=== PATIENT | male | born 1940 | race Caucasian/White ===

== ENCOUNTER 2017-09-19 06:08 | Inpatient (IN) ==
[~2017-09-19 06:08] MED LIST: Bacitracin 50,000 UNIT, Polymyxin B Sulfate 500,000 UNIT, Sodium Chloride IRRigation 1,... IR ONE
[2017-09-19] MEDS ORDERED: CeFAZolin Syr 2,000MG/20 ML 2,000 MG/20 ML SYRINGE IVPB ONE (06:26)
[2017-09-19] MEDS ORDERED: Ringers Solution, Lactated 1,000 ML IVC SCH ×2 (06:30→17:34)
[2017-09-19] MEDS ORDERED: *HR* Succinylcholine 200 MG/10 ML VIAL IVP ONE (06:40)
[2017-09-19] MEDS ORDERED: Lidocaine -MPF 2% 2 ML VIAL ONE (06:40)
[2017-09-19] MEDS ORDERED: *HR* FentaNYL (PF) 100 MCG/2 ML VIAL ONE ×3 (06:40→15:57)
[2017-09-19] MEDS ORDERED: Ondansetron 4 MG/2 ML VIAL ONE (06:40)
[2017-09-19] MEDS ORDERED: Lidocaine -MPF 4% 5 ML AMPUL ONE (06:40)
[2017-09-19] MEDS ORDERED: Dexamethasone 4 MG/ML VIAL ONE (06:40)
[2017-09-19] MEDS ORDERED: *HR* Propofol 200 MG/20 ML VIAL IVP ONE ×2 (06:41→10:47)
[2017-09-19] MEDS ORDERED: Acetaminophen IV 1,000 MG/100 ML INFUS..BTL IVPB ONE (07:09)
--- NOTE | 2017-09-19 07:11 | Anesthesia Evaluation PreOp ---
Date of Encounter: 09/19/17 Time of Encounter: 07:08 - Past History Planned Operation: Posterior cervical fusion Cardiac History: HTN Pulmonary History: Snore, Tired most of day IMPORT EXPORT MANAGER History: Other (cervical stenosis, radiculopathy) Other Medical History: GERD Anesthesia History: No Prior Anesthetic Complications, Past Anesthesia (L TKR, R elbo nn, hernia repair, appendectomy, prostate seeds) Alcohol Use: none Drug use: none Medications and Allergies Aspirin [Adult Aspirin Regimen] 81 mg PO DAILY 09/19/17 [History] Esomeprazole Magnesium [Nexium] 40 mg PO DAILY 09/19/17 [History] Ibuprofen [Motrin] 600 mg PO TID PRN 09/19/17 [History] 3 Allergy/AdvReac Type Severity Reaction Status Date / Time Sulfa (Sulfonamide Allergy Hives Verified 09/19/17 06:54 Antibiotics) ciprofloxacin AdvReac See Verified 09/19/17 06:54 Comments metronidazole AdvReac See Verified 09/19/17 06:54 Comments Wxljhfa-Kjj-Oxn Reductase AdvReac See Verified 09/19/17 06:54 Inhibitor Comments [Statins] - Meds/Allergy Pre-op Review Medications Reviewed: Yes Allergies Reviewed: Yes Beta Blockers on Current Med List: No Anesthesia Results - Labs Laboratory Tests 08/16/16 10/26/16 09/17/17 14:00 11:17 10:30 WBC 6.3 Hgb 17.2 H Hct 49.1 Plt Count 202 PT INR APTT Sodium Potassium Chloride Carbon Dioxide BUN POC Creatinine 1.40 H Creatinine Glucose 103 H 09/17/17 09/17/17 10:30 10:30 WBC Hgb Hct Plt Count PT 10.8 INR 1.0 APTT 32.7 Sodium 137 Potassium 4.1 Chloride 106 Carbon Dioxide 24 BUN 17 POC Creatinine Creatinine 1.16 Glucose - Imaging EKG: pending Anesthesia Exam O2 Sat Height 1.78 m Height 1.78 m Height 1.78 m Weight 107.048 kg Weight 107.048 kg Weight 107.048 kg O2 Sat by Pulse Oximetry 93 Vital Signs Temp Pulse Resp BP Pulse Ox 98.0 F 65 18 166/89 93 09/19/17 06:33 09/19/17 06:33 09/19/17 06:33 09/19/17 06:33 09/19/17 06:33 Height: 70" Weight: 231lbs NPO (# of Hours): >8 - HEENT Pupil (Motor): Pupils equal, EOMI Mallampati: III (limited ROM neck due to pain) Teeth: Prosthesis Denture Type: Upper: Partial Oral Opening: Greater than 3 - IMPORT EXPORT MANAGER LOC: Oriented IMPORT EXPORT MANAGER Motor: Normal LUE, Normal RLE, Normal LLE, Normal Face, Deficit RUE ( weakness) IMPORT EXPORT MANAGER Sensory: Normal: RLE, Face, Deficit: RUE (numbness), LUE (numbness), LLE ( numbness) - Cardiac Rhythm: Regular - Pulmonary Breath Sounds: bilateral Clear Respiratory Effort: Symmetrical Anesthesia Assess/Plan ASA Score: 2 Modified Karen Scale for Level of Consciousness: Cooperative, oriented, and tranquil Anesthetic Plan: General Monitoring Plan: Standard Monitors Recovery Plan: PACU
--- NOTE | 2017-09-19 08:10 | History & Physical Report ---
Date of Encounter: 09/19/17 Time of Encounter: 08:08 24 Hour HP Update - Instructions Instructions: If the History and Physical is less than 30 days old and was completed prior to A.M. admission and or procedure and has NOT been updated on calendar day of procedure please complete this update prior to performing procedure. - Update Patient reports changes in Medical Condition: No Changes in examination, assessment, or condition: No Changes in Medication: No Preop tests/diagnostics Reviewed: Yes Pre-Op MRSA Screen: Negative Surgery Remains Indicated: Yes Consent for Planned Operative Procedure(s) Verified: Yes - Pre-Operative Checklist Preoperative Checklist Indicated: No Prophylactic Antibiotic Ordered: Yes Home Medications Include Beta Lopez: No Beta Lopez Taken Today (Day of Surgery): No Beta Lopez Taken Yesterday (Day Prior to Surgery): No Is VTE Prophylaxis Indicated?: Yes
[2017-09-19] MEDS ORDERED: Esmolol 100 MG/10 ML VIAL IVP ONE ×2 (11:00→15:04)
[2017-09-19] MEDS ORDERED: EPHEDrine 50 MG/ML VIAL ONE (11:01)
[2017-09-19] MEDS ORDERED: Propofol 500 MG/50 ML INFUS..BTL ONE ×5 (11:49→14:37)
[2017-09-19] MEDS ORDERED: *HR* Remifentanil 2 MG VIAL IVP ONE ×2 (12:43→14:37)
[2017-09-19] MEDS ORDERED: *HR* Phenylephrine 10 MG/ML VIAL ONE (14:37)
--- NOTE | 2017-09-19 14:39 | Orthopedic Operative Note ---
Date of procedure: 09/19/17 Pre-op diagnosis: Cervical stenosis, cervical myelopathy Post-op diagnosis: same Operation/Findings: Posterior cervical fusion C4-C7: Patient was brought to the operative theater where he successfully underwent general endotracheal intubation. He was given antibiotics prior to the start of the procedure. Compression boots and stockings were used for deep vein thrombosis prophylaxis. A Garay catheter was placed. Leads were placed on the upper extremities and lower extremities as well as the cranium. The neurologic monitoring personnel confirmed satisfactory readings prior to the start of the procedure. The patient was turned prone on the operative table after being properly secured in a Osborne head rest. The area from the mid occipital to the mid thoracic spine was prepped and draped in the usual sterile fashion posteriorly. An incision was made and centered over the C4-C7 cervical spinous processes in the midline. The scoring incision was deepened through the cervical fascia. We used Bovie cautery and Antonio elevators to carefully dissect the lateral masses and expose them from C4-C7. Radiographic confirmation was confirmed by the radiologist via a discussion. We then placed lateral mass screws at C4, C5, C6, and C7 bilaterally using standard techniques. 8 separate 3.5 x 12 mm lateral mass screws were placed uneventfully and confirmed via fluorographic views as having satisfactory placement. After placement of the lateral mass screws, we turned our attention to the decompression. We removed the ligamentum flavum and interspinous and supraspinous ligaments at C6-7. We proceeded proximally with the decompression. This includes a laminectomy of C6, C5, and C4.. All intervening ligamentum flavum and ligamentous material was removed. Bone obtained from the laminectomies was saved in a separate sterile container for later use. After the decompression, the spinal cord could be clearly visualized from C4-C7 and was fully decompressed. It was seen to expand nicely. We copiously irrigated the wound. We then decorticated the facet joints and lateral masses from C4-5, C5-6, and C6-7 bilaterally until bleeding bone was obtained. We then used the autograft bone obtained from the laminectomy/decompression from C4-C7 and placed it over the lateral masses and facet joints in these regions. We then placed rods within the screw heads from C4-C7 bilaterally. We subsequently placed screw caps over the Rods and locked and finally tightened the construct in standard fashion. We then closed the wound in layers with 1 Vicryl for the Fascia, 2-0 Vicryl for the more superficial fascia and 2-0 Vicryl was used for skin closure. Dermabond was paced over the wound. Sterile dressing was placed over the wound as well. Cervical collar was placed. Patient was turned supine and extubated on the Hospital Bed. The patient was in good condition at the end of the procedure. All sponge counts, needle counts, and Instruments were correct at the end of the procedure. Anesthesia: GETA Surgeon: Kashif Barraza Jr Was there an assistant professor of history present: No Estimated blood loss (cc): 75 Specimen: None Condition: stable Disposition: PACU
[2017-09-19] MEDS ORDERED: *HR* HYDROmorphone 2 MG TABLET PO PRN (14:46)
[2017-09-19] MEDS ORDERED: *HR* OxyCODONE Immed Rel 5 MG TABLET PO PRN (14:46)
[2017-09-19] MEDS ORDERED: MORPHINE SUL Oral CONC 10 MG/0.5 ML ORAL.SYG SL PRN (14:46)
[2017-09-19] MEDS ORDERED: Ondansetron 4 MG/2 ML VIAL IVP PRN ×2 (14:46→17:34)
[2017-09-19] MEDS: *HR* Labetalol 20 MG/4 ML SYRINGE IVP PRN ×3 (15:05→15:33)
[2017-09-19] MEDS ORDERED: *HR* FentaNYL (PF) 100 MCG/2 ML VIAL IVP PRN (15:59)
--- NOTE | 2017-09-19 17:30 | Anesthesia Evaluation Post Op ---
Date of Encounter: 09/19/17 Time of Encounter: 17:27 - Vital Signs Vital Signs: Vital Signs/O2 Sat, Most Current Temp Pulse Resp BP Pulse Ox 98.3 F 91 18 169/96 93 09/19/17 16:56 09/19/17 17:06 09/19/17 17:06 09/19/17 17:06 09/19/17 17:06 - Lungs Lungs: Clear Ascult./Percussion - Airway Airway: Non-obstructed - Cardiovascular Regular Rate - Mental Status Mental Status: Alert & Oriented, Answers Appropriately - Pain Pain Scale used: Numeric (1 - 10) (tolerable) - Nausea Vomiting Nausea Vomiting: Not Present - Hydration Hydration: NPO, Garay catheter - Discharge PostOp Status: Transfer Patient to floor
[2017-09-19] MEDS ORDERED: Naloxone 0.4 MG/ML INJ IVP PRN (17:34)
[2017-09-19] MEDS ORDERED: Acetaminophen 325 MG TABLET PO PRN (17:34)
[2017-09-19] MEDS: Ketorolac 30 MG/ML VIAL IVP PRN (18:29)
[2017-09-19] MEDS: ceFAZolin 2,000 MG in 0.9 % Sodium Chloride 100 ML IVPB SCH (18:31)
[2017-09-19] MEDS: *HR* OxyCODONE Immed Rel 5 MG TABLET PO PRN (21:35)
[2017-09-20] MEDS: *HR* OxyCODONE Immed Rel 5 MG TABLET PO PRN ×5 (02:43→22:21)
[2017-09-20] MEDS: ceFAZolin 2,000 MG in 0.9 % Sodium Chloride 100 ML IVPB SCH (02:45)
[2017-09-20] MEDS: Ketorolac 30 MG/ML VIAL IVP PRN ×3 (04:56→23:49)
[2017-09-20] MEDS: Aspirin Enteric Coated 81 MG Tablet PO SCH (09:48)
--- NOTE | 2017-09-20 12:41 | Spine Progress Note ---
Date of Encounter: 09/20/17 Time of Encounter: 12:40 Subjective Principal diagnosis: Cervical stenosis, cervical radiculopathy, history of cervical fusion Interval history: The patient complains of severe neck pain. Afebrile vital signs are stable. Dressing is clean dry and intact. Neurovascularly intact with regard to bilateral upper extremities. Fires all upper and lower extremity motor groups. Assessment :stable. Plan mobilize ,continue analgesics, discharge planning. Objective Vital signs: Vital Signs Temp Pulse Resp BP Pulse Ox 09/20/17 11:26 97.4 F L 67 16 94 09/20/17 07:00 97.9 F 81 16 168/87 96 09/20/17 04:07 97.9 F 78 16 154/88 92 09/20/17 00:39 98.5 F 87 16 158/85 94 09/19/17 21:00 94 09/19/17 20:50 97.6 F 84 18 154/86 94 09/19/17 19:54 85 16 146/84 93 09/19/17 18:45 160/76 09/19/17 17:38 170/96 93 09/19/17 17:35 93 09/19/17 17:30 97.3 F L 95 22 190/103 92 09/19/17 17:06 91 18 169/96 93 09/19/17 16:56 98.3 F 89 20 174/95 92 09/19/17 16:46 98.3 F 89 24 185/101 92 09/19/17 16:36 87 22 191/105 92 09/19/17 16:26 84 24 192/101 92 09/19/17 16:16 98.1 F 82 21 191/108 92 09/19/17 16:06 82 20 194/108 93 09/19/17 15:56 82 20 189/112 93 09/19/17 15:46 97.7 F 85 20 183/111 93 09/19/17 15:36 86 20 178/111 93 09/19/17 15:26 88 20 163/113 94 09/19/17 15:16 98.0 F 87 20 183/114 93 09/19/17 15:06 93 20 183/114 94 09/19/17 14:56 94 20 192/104 94 09/19/17 14:46 97.9 F 93 20 182/95 93 Intake and Output 04/11/18 04/12/18 04/12/18 23:59 07:59 15:59 Intake Total 100 / 100 Output Total 3300 / 3300 Balance -3200 / -3200 Intake: IV Fluids 100 / 100 Ancef 2,000 MG In 0.9 % Sodium 100 / 100 Chloride 100 ML @ 200 mls/hr IVPB Q8H [facility] Rx#:[id number] Output: Catheter 3300 / 3300 Urethral (Garay) 2049 Consult Discharge Plan - Plan Referrals: Quintin Vargas DO [Primary Care Provider] -
--- NOTE | 2017-09-20 13:20 | Event Note ---
Date of Encounter: 09/20/17 Time of Encounter: 08:45 Patient is POD#2 Posterior cervical fusion C4-C7 on 09/19/[address] Barraza for Cervical stenosis, cervical myelopathy. The patient is without complaints. States pain is improving through the night. Afebrile vital signs are stable. Laboratory and xrays reviewed and without concern. Incision is clean dry and intact. Neurovascularly intact with regard to bilateral lower extremities. Fires all upper and lower extremity motor groups. Assessment :stable postoperative Plan: mobilize with therapy, continue analgesics as needed, discharge planning - awaiting therapy recommendations
[2017-09-21] MEDS: *HR* OxyCODONE Immed Rel 5 MG TABLET PO PRN ×3 (06:26→21:36)
--- NOTE | 2017-09-21 07:20 | Electrocardiograph Report ---
[facility] [employer] Test Date: 2017-09-19 Pat Name: [place] Department: 101 Room: [facility] Gender: M Application Dba: LENA : 1940 Requested By: Lorena Camejo Order Number: [id number] Reading MD: Luis Cuenca Measurements Intervals Lindsey Rate: 60 P: 16 OR: 171 QRS: -26 QRSD: 104 T: -9 QT: 409 QTc: 410 Interpretive Statements SINUS RHYTHM BORDERLINE LEFT AXIS DEVIATION MINIMAL ST DEPRESSION Electronically Signed On 09-21-2017 7:18:34 EDT by Luis Cuenca
[2017-09-21] MEDS: Aspirin Enteric Coated 81 MG Tablet PO SCH (08:19)
[2017-09-21] MEDS: *HR* HYDROcodone/Acet 5/325 mg TABLET PO PRN ×2 (08:19→14:44)
--- NOTE | 2017-09-21 08:24 | Orthopedics Progress Note ---
Date of Encounter: 09/21/17 Time of Encounter: 08:22 - Assessment and Plan (1) Cervical spinal stenosis Current Visit: Yes Status: Chronic (2) Cervical radiculopathy Current Visit: Yes Status: Chronic (3) Hx of fusion of cervical spine Current Visit: Yes Status: Chronic (4) Status post cervical spinal fusion Current Visit: Yes Status: Acute Subjective Principal diagnosis: Cervical stenosis, cervical radiculopathy, history of cervical fusion Interval history: Patient is POD#3 Posterior cervical fusion C4-C7 on 09/19/[address] Barraza for Cervical stenosis, cervical myelopathy. The patient is without complaints. States pain is improving though he notes his arms aching when his neck starts to hurt. Afebrile vital signs are stable. Laboratory and xrays reviewed and without concern. Incision is clean dry and intact. Neurovascularly intact with regard to bilateral lower extremities. Fires all upper and lower extremity motor groups. Assessment :stable postoperative Plan: mobilize with therapy, continue analgesics as needed, discharge planning - to [facility] tomorrow, 09/21. Objective Vital signs: Vital Signs Temp Pulse Resp BP Pulse Ox 09/21/17 07:42 98.6 F 98 17 170/98 93 09/20/17 23:23 98.5 F 82 18 136/79 92 09/20/17 20:55 98.0 F 98 16 140/80 93 09/20/17 17:00 98.0 F 74 16 159/82 95 09/20/17 11:26 97.4 F L 67 16 94 09/20/17 09:30 93 Intake and Output 09/20/17 09/21/17 09/21/17 23:59 07:59 15:59 Intake Total 100 / 100 Output Total 600 / 600 Balance -500 / -500 Intake: Oral 100 / 100 Output: Urine 600 / 600 Other: Meal Dinner Percent of Meal Consumed 70% - VTE Documentation of Mechanical Device: Graduated compression elastic hosiery Consult Discharge Plan - Plan Referrals: Quintin Vargas DO [Primary Care Provider] - Mei Lockhart PAC [Physician Acid Conditioning Worker] - 10/02/17 1:00 pm
--- NOTE | 2017-09-21 08:27 | Discharge Summary ---
Date of Encounter: 09/21/17 Time of Encounter: 08:25 - Discharge Diagnosis (1) Cervical spinal stenosis Priority: Primary Status: Chronic (2) Cervical radiculopathy Priority: Primary Status: Chronic (3) Hx of fusion of cervical spine Priority: Primary Status: Chronic (4) Status post cervical spinal fusion Priority: Primary Status: Acute - Hospital Course Hospital course: Mr. Beach is a 77 year old male - Time Spent with Patient Total time spent providing and/or coordinating discharge services: - Discharge Medications Prescriptions: OxyCODONE Immed Rel [Roxicodone 5 MG] 5 mg PO Q6H PRN 7 Days #28 tablet PRN Reason: Severe Pain Home Medications: Aspirin [Adult Aspirin Regimen] 81 mg PO DAILY 09/19/17 [History] Esomeprazole Magnesium [Nexium] 40 mg PO DAILY 09/19/17 [History] Ibuprofen [Motrin] 600 mg PO TID PRN 09/19/17 [History] Acetaminophen [Tylenol] 650 mg PO Q6HR PRN tablet 09/21/17 [Rx] Cyclobenzaprine [Flexeril] 10 mg PO TID PRN tablet 09/21/17 [Rx] OxyCODONE Immed Rel [Roxicodone 5 MG] 5 mg PO Q6H PRN 7 Days #28 tablet [Rx] Allergies/Adverse Reactions: 3 Allergy/AdvReac Type Severity Reaction Status Date / Time Sulfa (Sulfonamide Allergy Hives Verified 09/19/17 06:54 Antibiotics) ciprofloxacin AdvReac See Verified 09/19/17 06:54 Comments metronidazole AdvReac See Verified 09/19/17 06:54 Comments Mbtkhww-Xct-Bvm Reductase AdvReac See Verified 09/19/17 06:54 Inhibitor Comments [Statins] Date of admission: 09/19/17 17:23 Primary care physician: Quintin Vargas DO Consults: 09/19/17 17:34 Consult to Occupational Therapy [CONS] Routine Comment: Evaluate, develop and implement POC Reason for Consult: Postoperative rehabilitation Does patient have active BEDREST order?: No Is patient medically & hemodynamically stable?: Yes Patient assessed for mobility or mobilized this visit?: No Consult to Physical Therapy [CONS] Routine Comment: Evaluate, develop and implement POC Reason for Consult: Postoperative rehabilitation Does patient have active BEDREST order?: No Is patient medically & hemodynamically stable?: Yes Patient assessed for mobility or mobilized this visit?: No Consult to Spine Navigator [CONS] [CONS] Routine 09/20/17 11:20 Consult to Psychology Assistant [CONS] Routine Reason for SW Consult: Inpatient rehab at discharge - VTE Documentation of Mechanical Device: Graduated compression elastic hosiery - Impressions ITS Impressions Cervical Spine X-Ray 09/19/17 00:00 IMPRESSION: Intraprocedural fluoroscopic spot images as above. See separate procedure report for more information. D/ / Nathan Bangura MD / Nathan Bangura MD Interpreting Provider: Nathan Bangura MD Fluoroscopy 09/19/17 00:00 IMPRESSION: Intraprocedural fluoroscopic spot images as above. See separate procedure report for more information. D/ / Nathan Bangura MD / Nathan Bangura MD Interpreting Provider: Nathan Bangura MD Cervical Spine X-Ray 09/20/17 09:00 IMPRESSION: Status post decompressive laminectomy and posterolateral fusion from C4-C7. Status post previous anterior fusion with plate and screw device from C5-C7. D/ / 09/20/2017 10:05:59 Tod Lund MD / mando Interpreting Provider: Tod Ludn MD - Patient Status Disposition: Transfer Inpatient Rehab Fac Condition: Good Functional capacity at discharge: uses cane/walker Overall status at discharge: patient is progressing back to baseline - Discharge Instructions Follow Up With: Mei Lockhart PAC [Physician Clearing Hand] - 10/02/17 1:00 pm Quintin Vargas DO [Primary Care Provider] - - Diet and Activity Activity: as per physical therapy Diet: advance to your usual diet
[2017-09-21 09:22] LABS: Basophils # 0.1 K/mcL (0.0-0.2); Basophils % 0.6 %; Eosinophils # 0.1 K/mcL (0.0-0.6); Eosinophils % 1.3 %; Hematocrit 45.4 % (37.5-50.1); Hemoglobin 15.6 g/dL (12.9-16.9); Immature Granulocytes % 0.7 % (0-4); Lymphocytes # 1.7 K/mcL (0.6-4.6); Lymphocytes % 20.5 %; Mean Corpuscular HGB Conc 34.4 g/dL (31.6-35.5); Mean Corpuscular Hemoglobin 30.8 pg (28.0-33.3); Mean Corpuscular Volume 89.5 fL (83.0-100.0); Mean Platelet Volume 10.5 fL (9.4-12.4); Monocytes # 1.1 K/mcL (0.0-1.3); Monocytes % 12.6 %; Neutrophils # 5.4 K/mcL (1.6-8.9); Platelet Count 163 K/mcL (140-400); Red Blood Count 5.07 M/mcL (4.19-5.50); Red Cell Distribution Width 13.6 % (11.5-14.5); Segmented Neutrophils % 64.3 %
[2017-09-21 09:45] LABS: BUN/Creatinine Ratio 15 (6-26); Blood Urea Nitrogen 19 mg/dL (8-23); Calcium 9.2 mg/dL (8.6-10.3); Carbon Dioxide 28 mEq/L (23-29); Chloride 102 mEq/L (98-107); Glucose 148 mg/dL (70-105); Osmolality,Calculated 287 (280-300); Potassium 3.8 mEq/L (3.5-5.1); Sodium 136 mEq/L (136-145); eGFR For African Americans > 60 (> 60); eGFR For Non-African Americans 55 (> 60)
[2017-09-22] MEDS: *HR* OxyCODONE Immed Rel 5 MG TABLET PO PRN ×3 (01:30→15:08)
--- NOTE | 2017-09-22 06:23 | Orthopedics Progress Note ---
Date of Encounter: 09/22/17 Time of Encounter: 06:23 Subjective Principal diagnosis: Cervical stenosis, cervical radiculopathy, history of cervical fusion Interval history: Patient seen this morning doing well no complaints Bilateral lower extremity neurovascularly intact patient discharged today. Objective Vital signs: Vital Signs Temp Pulse Resp BP Pulse Ox 09/22/17 05:20 69 154/83 09/22/17 04:46 99.1 F 73 16 183/104 93 09/21/17 23:44 98.2 F 77 16 170/89 94 09/21/17 18:54 99.4 F 104 18 179/94 91 09/21/17 15:47 98.2 F 100 18 179/108 93 09/21/17 11:26 98.3 F 90 16 170/99 95 09/21/17 07:42 98.6 F 98 17 170/98 93 Intake and Output 09/21/17 09/21/17 09/22/17 15:59 23:59 07:59 Intake Total 0 / 0 100 / 100 Output Total 200 / 200 Balance 0 / 0 -100 / -100 Intake: Oral 0 / 0 100 / 100 Output: Urine 200 / 200 Other: Weight 108.2 kg Patient Weight 09/22/17 23:59 Weight 108.2 kg - Labs CBC & BMP: 09/21/17 08:45 09/21/17 08:45 Labs: Abnormal lab results Est GFR (Non-Af Amer) 55 (> 60) L 09/21/17 08:45 Glucose 148 mg/dL (70-105) H 09/21/17 08:45 - VTE Documentation of Mechanical Device: Intermittent pneumatic compression device Consult Discharge Plan - Plan Referrals: Mei Lockhart PAC [Physician Warehouse Order Picker] - 10/02/17 1:00 pm Quintin Vargas DO [Primary Care Provider] - Prescriptions: OxyCODONE Immed Rel [Roxicodone 5 MG] 5 mg PO Q6H PRN 7 Days #28 tablet PRN Reason: Severe Pain
[2017-09-22] MEDS: *HR* HYDROcodone/Acet 5/325 mg TABLET PO PRN (09:21)
[2017-09-22] MEDS: Aspirin Enteric Coated 81 MG Tablet PO SCH (09:21)
[2017-09-22] MEDS: Ketorolac 30 MG/ML VIAL IVP PRN (11:10)
[2017-09-22 15:01] VITALS: BP 148/91
== END 2017-09-22 15:18 | DRG 472 ==
LOC: SAMDAY 06:08 → 3NENU 17:23
PROVIDERS: ADMIT Orthopaedic Surgery Orthopaedic Surgery of the Spine; ATTEND Orthopaedic Surgery Orthopaedic Surgery of the Spine